=== PATIENT | male | born 1980 | race Caucasian/White ===

== ENCOUNTER 2017-12-13 15:52 | Emergency (ER) | payer OTHER ==
--- NOTE | 2017-12-13 15:56 | EDPHY ---
HPI/HX/ROS/PE/MDM Narrative: CHIEF COMPLAINT: Right shoulder injury HPI: The patient is a 37 y/o male arriving via EMS complaining of a right shoulder injury secondary to falling while skiing today. The patient was a helmeted skier , when he fell on an outstretched right arm. Denies hitting his head or loss of consciousness. The pain was initially a 10/10. While en route to the emergency department, EMS administered 10mg IV Morphine, 400mcg IV Fentanyl, 1mg IV Versed , and 4mg IV Zofran. His pain is currently a 5/10. Last PO was 13:00, 3 hours ago. He states he tolerated anesthesia well with a prior hand surgery. No chest pain, shortness of breath, abdominal pain, urinary or bowel complaints, headache , or fever. REVIEW OF SYSTEMS: Aside from elements discussed in the HPI, a comprehensive 10-point review of systems was reviewed and is negative. PMH: Hand surgery SOCIAL HISTORY: Friend at bedside, lives in [place], , employed PHYSICAL EXAM: General: Patient is alert, in no acute distress. ENT: Eyes are normal to inspection. ENT inspection normal. Neck: Normal inspection. Full range of motion. Respiratory: No respiratory distress. Breath sounds normal bilaterally. Cardiovascular: Regular rate and rhythm. Strong peripheral pulses. Normal cap refill. Abdomen: The abdomen is nontender to palpation. There are no peritoneal signs. There are normal bowel sounds. Back: Normal to inspection. No tenderness to palpation. Skin: Normal color. No rash. Warm and dry. Extremities: Tenderness and step off of right shoulder. Light touch sensation and motor function is preserved in the axillary, median, radial and ulnar nerve distributions. There is a 2+ radial pulse with brisk cap refill. Neuro: Oriented x3. Normal motor function. Normal sensory function. Portions of this note were transcribed by an ED scribe. I personally performed the history, physical exam, and medical decision making; and confirm the accuracy of the information in the transcribed note. ED Course: 1552: [facility] upon arrival 1600: Patient is currently complaining of pain, 30mg IV Toradol administered. 1620: I reviewed patient's shoulder x-ray. There is a anterior dislocation and possible humerus fracture. Radiologist reading pending. 1628: Reassessed patient and discussed imaging findings. 1630: Radiologist reading reveals a fracture of the greater tuberosity in addition to the dislocation. 1641: I consulted with Dr. Jin, orthopedic surgeon, regarding this patient. 1648: Consent forms have been signed prior to reduction and conscious sedation. Procedure: Conscious sedation. Indication: Right shoulder reduction The patient is an appropriate candidate to tolerate procedural sedation. The patient's vitals signs and mental status are appropriate. The risks, benefits and alternatives of the sedation were discussed with the patient. The patient is ASA classification 1. The patient's Mallampati airway score was 1 and the patient did meet the 3-3-2 airway measurements. A time out was completed. The patient was sedated with 60mg IV Propofol. The patient was monitored with continuous pulse oximetry, fence post driver and end tidal CO2. There were no complications and no significant hypoxemia. I performed both the sedation and the procedure. The total time I spent at the bedside during the procedural sedation was 20 minutes. The patient was examined after the procedural sedation and has returned to their pre-sedation baseline with normal vital signs and a normal examination. Procedure: Reduction of dislocated shoulder Time-out completed immediately before the procedure. IV established. O2 administered. Placed on pulse oximeter and [id number]. Neurovascular exam intact pre-procedure. Given 60mg IV Propofol for pain and sedation. The right shoulder was reduced using traction-countertraction. Reassessed post-procedure. Neurovascular status intact- normal median, radial, ulnar and axillary nerve motor and sensory exam. Exam indicated reduction. Confirmed reduction on X-ray. Arm sling applied. The procedure was performed by myself, Dr. Stoll. Reassessed patient post reduction, he is feeling better. I have advised him to follow up with Dr. Jin within the next week. Patient has been prescribed Percocet for pain. Return precautions provided; patient is comfortable with this plan. - Data Points Imaging Results: Imaging Impressions Shoulder X-Ray 12/13/17 15:55 Impression: Inferomedial humeral head dislocation relative to the glenoid, with a fracture through the greater tuberosity. Imaging: Discussed imaging studies w/ wire winding machine tender Radiologist, I viewed and interpreted images myself Medications Given: Discontinued Medications Sodium Chloride (Ns) 1,000 mls @ 0 mls/hr IV ONCE ONE PRN Reason: Wide Open Stop: 12/13/17 16:51 Last Admin: 12/13/17 16:50 Dose: 1,000 mls Ketorolac Tromethamine (Toradol) 30 mg IVP EDNOW ONE Stop: 12/13/17 16:05 Last Admin: 12/13/17 16:04 Dose: 30 mg Propofol (Diprivan) 40 mg IVP EDNOW ONE Stop: 12/13/17 16:50 Last Admin: 12/13/17 16:50 Dose: 40 mg Propofol (Diprivan) 20 mg IVP EDNOW ONE Stop: 12/13/17 16:56 Last Admin: 12/13/17 16:55 Dose: 20 mg General Time Seen by Provider: 12/13/17 15:52 Initial Vital Signs: Initial Vital Signs Temperature (C) 36.5 C 12/13/17 15:56 Heart Rate 80 12/13/17 15:56 Blood Pressure 139/68 H 12/13/17 15:56 O2 Sat (%) 92 12/13/17 15:56 O2 Delivery Mode [Post Room Air Procedure 1st] O2 Delivery Mode [Procedural Non-Rebreather Mask 3rd] O2 Delivery Mode [Procedural Non-Rebreather Mask 2nd] O2 Delivery Mode [Procedural Non-Rebreather Mask 1st] O2 Delivery Mode [.Immediate Non-Rebreather Mask Pre-Procedure] O2 Delivery Mode Nasal Cannula O2 (L/minute) [Procedural 3rd] 10 O2 (L/minute) [Procedural 2nd] 15 O2 (L/minute) [Procedural 1st] 15 O2 (L/minute) [.Immediate Pre- 10 Procedure] O2 (L/minute) 2 Allergies/Adverse Reactions: No Known Allergies Allergy (Unverified 12/13/17 15:56) Home Medications: Medication Instructions Recorded oxyCODONE/APAP 5/325 [Percocet 5 - 10 mg PO Q4-6PRN PRN #20 tab 12/13/17 5/325] Departure - Departure Disposition: Home, Routine, Self-Care Clinical Impression: Dislocation of right shoulder joint Qualifiers: Encounter type: initial encounter Qualified Code(s): S43.004A - Unspecified dislocation of right shoulder joint, initial encounter Right humeral fracture Qualifiers: Encounter type: initial encounter Humerus Location: greater tuberosity Fracture type: closed Fracture alignment: nondisplaced Qualified Code(s): S42.254A - Nondisplaced fracture of greater tuberosity of right humerus, initial encounter for closed fracture Condition: Good Instructions: Arm Fracture in Adults (ED), Shoulder Dislocation (ED), Procedural Sedation (ED) Additional Instructions: Rest, ice, elevation. Take Percocet as prescribed for severe pain. Follow up with an orthopedic surgeon within one week, you have been referred to Dr. Jin. Return to the emergency department for worsening pain, swelling, numbness, weakness or other concerns. Wear sling at all times until reevaluation. Referrals: Travis Jin MD [Medical Doctor] - As per Instructions Prescriptions: oxyCODONE/APAP 5/325 [Percocet 5/325] 5 - 10 mg PO Q4-6PRN PRN #20 tab PRN Reason: For Pain Report Scribed for: Pancho Stoll Report Scribed by: Magali Nieto Date of Report: 12/13/17 Time of Report: 15:56
[2017-12-13] MEDS ORDERED: KETOROLAC 30 MG/1 ML SDV ONE (16:01)
[2017-12-13] MEDS ORDERED: KETOROLAC 30 MG/1 ML SDV IVP ONE (16:04)
[2017-12-13] MEDS ORDERED: PROPOFOL 200 MG/20 ML VIAL ONE (16:43)
[2017-12-13] MEDS ORDERED: PROPOFOL 200 MG/20 ML VIAL IVP ONE ×2 (16:49→16:55)
[2017-12-13] MEDS ORDERED: NS 1,000 ML IV ONE (16:50)
[2017-12-13] MEDS ORDERED: OXYCODONE/APAP 5/325MG PREPACK#4 BTL TAKEHOME ONE (17:24)
[2017-12-13 17:47] VITALS: BP 126/77
== END 2017-12-13 17:49 | disposition home or self-care (01) ==
PROC: 0RSJXZZ Reposition Right Shoulder Joint, External Approach (ICD-10-PCS; principal; 2017-12-13)
DX: S42.254A Nondisplaced fracture of greater tuberosity of right humerus, initial encounter for closed fracture (principal); S43.004A Unspecified dislocation of right shoulder joint, initial encounter; V00.321A Fall from snow-skis, initial encounter; Y99.8 Other external cause status; Y93.23 Activity, snow (alpine) (downhill) skiing, snowboarding, sledding, tobogganing and snow tubing
CPT/HCPCS: 96374; A4565; J1885; J2704